=== PATIENT | female | born 1975 | race Caucasian/White ===

== ENCOUNTER 2016-05-01 20:30 | Emergency (ER) | payer OTHER ==
[2016-05-01 23:42] LABS: HEMOGLOBIN 14.1 gm/dl (12.3-15.3); RED BLOOD COUNT 4.85 M/UL (4.00-5.10); WHITE BLOOD COUNT 16.5 K/UL (4.5-11.0)
[2016-05-02 00:06] LABS: BUN/CREATININE RATIO 28 (0-10)
== END 2016-05-02 02:30 | disposition home or self-care (01) ==
LOC: ER1 20:30
PROVIDERS: Specialist/Technologist Athletic Trainer
DX: J10.1 Influenza due to other identified influenza virus with other respiratory manifestations (principal); R73.9 Hyperglycemia, unspecified; I10 Essential (primary) hypertension; E66.01 Morbid (severe) obesity due to excess calories; Z90.49 Acquired absence of other specified parts of digestive tract
CPT/HCPCS: 36415; 70450; 80053; 81001; 82550; 82553; 83874; 84484; 85025; 93005; 96361; 96374; 99284; J1885

== ENCOUNTER 2016-06-11 14:38 | Emergency (ER) | payer OTHER ==
[2016-06-11 17:28] LABS: HEMOGLOBIN 13.8 gm/dl (12.3-15.3); RED BLOOD COUNT 4.75 M/UL (4.00-5.10); WHITE BLOOD COUNT 7.3 K/UL (4.5-11.0)
[2016-06-11 17:50] LABS: BUN/CREATININE RATIO 20 (0-10)
== END 2016-06-11 20:15 | disposition home or self-care (01) ==
LOC: ER1 14:38
PROVIDERS: Emergency Medicine
DX: R10.31 Right lower quadrant pain (principal); R11.0 Nausea; K76.0 Fatty (change of) liver, not elsewhere classified; I10 Essential (primary) hypertension; K21.9 Gastro-esophageal reflux disease without esophagitis; Z90.49 Acquired absence of other specified parts of digestive tract; Z79.899 Other long term (current) drug therapy
CPT/HCPCS: 36415; 80053; 81001; 82150; 83690; 85025; 87086; 99284; J7050; Q9962

== ENCOUNTER 2016-07-21 18:36 | Emergency (ER) | payer OTHER ==
[2016-07-21 20:52] LABS: HEMOGLOBIN 13.9 gm/dl (12.3-15.3); RED BLOOD COUNT 4.66 M/UL (4.00-5.10)
[2016-07-21 22:21] LABS: BUN/CREATININE RATIO 13 (0-10)
== END 2016-07-21 22:50 | disposition home or self-care (01) ==
LOC: ER1 18:36
PROVIDERS: Emergency Medicine
DX: R51 Headache (principal); R11.0 Nausea; H53.149 Visual discomfort, unspecified; I10 Essential (primary) hypertension; Z85.42 Personal history of malignant neoplasm of other parts of uterus; Z90.49 Acquired absence of other specified parts of digestive tract
CPT/HCPCS: 36415; 70450; 80053; 85025; 96374; 96375; 99284; J2270; J2405

== ENCOUNTER 2020-03-23 09:47 | Emergency (ER) | payer OTHER ==
[~2020-03-23 09:47] MED LIST: ASPIRIN CHEWABL81 MG PO; BACTRIM DS TAB1 EACH PO; CARAFATE1 GM PO; CEFUROXIME500 MG PO; CLEOCIN HCL300 MG PO; DIFLUCAN 100 M100 MG PO; KEFLEX CAP 500500 MG PO; NAPROSYN500 MG PO; PROTONIX20 MG PO; PROVENTIL HFA6.7 GM INH; ZITHROMAX250 MG PO; ZOFRAN ODT 4 MG4 MG GT; ZOFRAN ODT 4 MG4 MG PO; ZOFRAN4 MG PO
[2020-03-23 11:55] LABS: HEMOGLOBIN 13.1 gm/dl (12.3-15.3); RED BLOOD COUNT 4.27 M/UL (4.00-5.10); WHITE BLOOD COUNT 5.8 K/UL (4.5-11.0)
[2020-03-23 12:25] LABS: BUN/CREATININE RATIO 29 (0-10)
== END 2020-03-23 14:09 | disposition home or self-care (01) ==
LOC: ER1 09:47
PROVIDERS: Physician Assistant Medical
DX: K21.9 Gastro-esophageal reflux disease without esophagitis (principal)
CPT/HCPCS: 71045; 80053; 82550; 82553; 83690; 83874; 84484; 85025; 96374; 99285; J2405; J7030

== ENCOUNTER → 2020-06-18 | Outpatient (CLI) | payer OTHER | LOC: HEART 5 15:35 | DX: R06.00 Dyspnea, unspecified (principal) | CPT/HCPCS: 94010 ==